=== PATIENT | male | born 1965 | race Caucasian/White ===

== ENCOUNTER 2021-05-04 13:35 | Emergency (ER) | payer OTHER ==
--- OUTSIDE RECORDS SUMMARY | 2021-05-04 13:38 | XMS REPORT | Continuity of Care Document ---
:1965 Author Organization [facility] Address [address] [place] [address] Care Team Providers Name Role Phone Tiburcio Attending Clinician Unavailable Ramiro Attending Clinician Unavailable [facility] Attending Clinician Unavailable Tiburcio Admitting Clinician Unavailable Ramiro Admitting Clinician Unavailable Payers Payer Name Policy Type Policy Number Effective Date Expiration Date S [facility] [id number] EMPLOYEE BENEFITS [facility] - DEPARTMENT [id number] [facility] [id number] EMPLOYEE BENEFITS PLAN Problems This patient has no known problems. Allergies, Adverse Reactions, Alerts This patient has no known allergies or adverse reactions. Medications This patient has no known medications. Procedures This patient has no known procedures. Encounters Start End Encounter Admission Attending Care Care Encounter Source Date/Time Date/Time Type Type Clinicians Facility Department ID 2020-04-07 2020-04-07 Outpatient [facility] [address] 04:29:00 04:29:00 [facility] [facility] Results Test Description Test Time Test Comments Results Result Comments Source [facility] 2017-11-19 11:11:00 Test Item Value Reference Range Interpretation Comme nts [facility] (test code = ACU) 109 mg/dL 70-110 N [id number] 04:52:00 Test Item Value Reference Range Interpretation Comments Chemistry (test 140 mmol/L 136-145 N code = NA-T) Chemistry (test 3.8 mmol/L 3.5-5.1 N code = K-T) Chemistry (test 106 mmol/L 98-107 N code = CL) Chemistry (test 29 mmol/L 22-29 N code = CO2) Chemistry (test 9 mmol/L 10-20 L code = ANGP) Chemistry (test 10 mg/dL 8.4-25.7 N code = BUN) Chemistry (test 0.73 mg/dL 0.6-1.3 N code = CREATT) Chemistry (test Greater than 90 Referenc e Range for code = EGFRMDRD) Estimated G FR: Gre ater than 90 mL/min/ 1.73 m2NOTE:The MDRD equation has no t been validated for use with theeld erly (over 70 years of age), women, patients with serious comorbi d condition or pe rsons with extremes o fbody size, muscle ma ss, or nutritional status. Chemistry (test 99 mg/dL 70-105 N code = GLU-T) Chemistry (test 9.2 mg/dL 7.8-10.44 N code = CA) [id number] 04:43:00 Test Item Value Reference Range Interpretation Comments Hematology (test code = WBCT) 9.5 thou/uL 4.8-10.8 N Hematology (test code = RBCT) 4.72 mill/uL 4.70-6.10 N Hematology (test code = HGBT) 14.3 g/dL 14.0-18.0 N Hematology (test code = HCTT) 42.5 % 42.0-52.0 N Hematology (test code = MCV) 90.1 fL 78.0-98.0 N Hematology (test code = MCH) 30.2 pg 27.0-31.0 N Hematology (test code = MCHC) 33.5 g/dL 32.0-36.0 N Hematology (test code = RDW) 11.4 % 11.5-14.5 L Hematology (test code = PLTT) 252 thou/uL 130-400 N Hematology (test code = MPV) 7.0 fL 7.4-10.4 L Hematology (test code = %NEUT) 41.6 % 42.0-75.0 L Hematology (test code = %LYMPH) 38.9 % 21.0-51.0 N Hematology (test code = %MONO) 6.1 % 0.0-10.0 N Hematology (test code = %EOS) 12.8 % 0.0-10.0 H Hematology (test code = %BASO) 0.7 % 0.0-1.0 N Hematology (test code = NEUT#) 3.9 thou/uL 1.40-6.50 N Hematology (test code = LYMPH#) 3.7 thou/uL 1.20-3.40 H Hematology (test code = MONO#) 0.6 thou/uL 0.11-0.59 H Hematology (test code = EOS#) 1.2 thou/uL 0.0-0.7 H Hematology (test code = BASO#) 0.1 thou/uL 0.0-0.2 N [id number] 20:31:00 Test Item Value Reference Range Interpretation Comments Accuchek (test code = ACU) 94 mg/dL 70-110 N [id number] 16:31:00 Test Item Value Reference Range Interpretation Comments Accuchek (test code = ACU) 86 mg/dL 70-110 N [id number] 15:48:00 Test Item Value Reference Range Interpretation Comments Toxicology (test Not Detected NotDetected code = CONNIE) Toxicology (test Not Detected NotDetected code = PCP) Toxicology (test Not Detected NotDetected code = COCN) Toxicology (test Not Detected NotDetected code = METHAMPU) Toxicology (test Not Detected NotDetected code = OPIA) Toxicology (test Not Detected NotDetected code = AMPHU) Toxicology (test Not Detected NotDetected code = VARGAS) Toxicology (test Not Detected NotDetected code = TRICY) Toxicology (test Not Detected NotDetected code = MTD) Toxicology (test Not Detected NotDetected code = SHIMON) Toxicology (test Not Detected NotDetected code = OXYCOD) Toxicology (test Not Detected NotDetected code = PPX) Toxicology (test The MedT ox Profile-V code = MTCUTOFF) Panel for Q ualitative Drugs ofAbuse a ssays are for presump tive screening testi ng only.The drug c lass and detection l imits are as follows: Drug Class Detection LimitAmphetamin e 500 ng/mL*Barbitura lamonte 200 ng/mLBenzodiaze pines 150 ng/mL*Cocaine 150 ng/mL*Methamphe tamine 500 ng/mL*Methadone 200 ng/mL*Opiates 100 ng/mL*Oxycodone 100 n g/mLPCP 25 ng/mLPropox yphene 30 0 ng/mLTricyclic Antidepressants 300 ng/mLCannabinoi ds (THC) 50 ng/mLTests whic h yield a presumptive p ositive result must bet ested using a more sp ecific alternate chemi sandra method inorder to obtain a confir med analytical resu lt. Additionalconfi rmation and identificat ion may be ordered on a routinebasis, i f desired. Presu mptive positive urines are held [facility]. Urine Source: Urine [id number] 15:38:00 Test Item Value Reference Range Interpretation Comments Urinalysis (test code = UACLR) YELLOW Yellow Urinalysis (test code = UACLY) CLEAR Clear Urinalysis (test code = SPGR) 1.053 1.002-1.036 H Urinalysis (test code = JENNIFER) 5.5 5.0-9.0 N Urinalysis (test code = UALEU) Negative Negative Urinalysis (test code = UANIT) Negative Negative Urinalysis (test code = Negative mg/dL Neg-Trace PROUADIP) Urinalysis (test code = GLUCU) Negative mg/dL Negative Urinalysis (test code = KETU) Negative mg/dL Negative Urinalysis (test code = 0.2 mg/dL 0.2-1.0 UAUROB) Urinalysis (test code = UABIL) Negative Negative Urinalysis (test code = UABLD) Negative Negative Urine Source: Urine [id number] 15:10:00 Test Item Value Reference Range Interpretation Comments Chemistry (test code = PROLAC) 4.06 ng/mL 3.46-19.40 N Chemistry - [id number] 15:04:00 Test Item Value Reference Range Interpretation Comments Chemistry - Specials (test code 1.1651 uIU/mL 0.35-4.94 N = TSH3) [id number] 14:51:00 Test Item Value Reference Range Interpretation Comments Chemistry (test Less than 10.0-30.0 L Therapeutic Range: 10.0 - code = ACET-T) 6.0 mcg/mL 30.0 ug/mLTox ic Range: Possible tox icity: 150 - 200 ug/mL Probable toxicity: Grea ter than 200 ug/mL*IMPORTANT TESTING INFORMATION* T he half-life of NAC is 2 meaghan rs. The total NAC clearanceis 5.6 hours for adults and 11 hours for Newborns. Test ing acetaminophen l evels prior to a reasonable timeframe for clearance c an cause falsely decreasedacetam inophen levels. Chemistry (test Less than Less than 10 The pharmaco logical response code = ETOH) 10 mg/dL to blood alcoho l levels mayvary from in dividual to individual. Negative: Less than 10 mg/dL Toxic: 50 - 10 0 mg/dL Depression o f FINISH MENDER: Greater than 100 mg/dL Fatalities reported: Greater than 400 mg/dL Chemistry (test Less than 15.0-30.0 L code = SALCY) 8.0 mg/dL [id number] 14:45:00 Test Item Value Reference Range Interpretation Comments Chemistry (test code = CK) 92 U/L 30-200 N Chemistry - [id number] 14:36:00 Test Item Value Reference Range Interpretation Comments Chemistry - Specials (test code = 36 umol/L 18-72 N AMM) [id number] 11:45:00 Test Item Value Reference Range Interpretation Comments Urinalysis (test code = UACLR) Yellow Yellow Urinalysis (test code = UACLY) Clear Clear Urinalysis (test code = SPGR) 1.025 1.005-1.030 N Urinalysis (test code = JENNIFER) 5.0 5.0-9.0 N Urinalysis (test code = UALEU) Negative Negative Urinalysis (test code = UANIT) Negative Negative Urinalysis (test code = Negative mg/dL Neg-Trace PROUADIP) Urinalysis (test code = GLUCU) Negative mg/dL Negative Urinalysis (test code = KETU) Negative mg/dL Negative Urinalysis (test code = 0.2 mg/dL 0.2-1.0 UAUROB) Urinalysis (test code = UABIL) Negative Negative Urinalysis (test code = UABLD) Negative Negative Urine Source: Urine [id number] 11:44:00 Test Item Value Reference Range Interpretation Comments Accuchek (test code = ACU) 114 mg/dL 70-110 H Chemistry - BNP, HgbA1c, [id number] 11:00:00 Test Item Value Reference Range Interpretation Comments Chemistry - BNP, HgbA1c, PTHi 19.0 pg/mL 0-100 N (test code = BNP) [id number] 10:54:00 Test Item Value Reference Range Interpretation Comments Chemistry (test 138 mmol/L 136-145 N code = NA-T) Chemistry (test 3.8 mmol/L 3.5-5.1 N code = K-T) Chemistry (test 106 mmol/L 98-107 N code = CL) Chemistry (test 22 mmol/L 22-29 N code = CO2) Chemistry (test 14 mmol/L 10-20 N code = ANGP) Chemistry (test 14 mg/dL 8.4-25.7 N code = BUN) Chemistry (test 0.72 mg/dL 0.7-1.3 N code = CREATT) Chemistry (test Greater than 90 Referenc e Range for code = EGFRMDRD) Estimated G FR: Gre ater than 90 mL/min/ 1.73 m2NOTE:The MDRD equation has no t been validated for use with theeld erly (over 70 years of age), women, patients with serious comorbi d condition or pe rsons with extremes o fbody size, muscle ma ss, or nutritional status. Chemistry (test 133 mg/dL 70-105 H code = GLU-T) Chemistry (test 8.8 mg/dL 7.8-10.44 N code = CA) Chemistry (test 0.5 mg/dL 0.2-1.2 N code = TBILI) Chemistry (test 6.7 g/dL 6.0-8.3 N code = TP) Chemistry (test 3.9 g/dL 3.5-5.0 N code = ALB) Chemistry (test 2.8 g/dL 2.4-3.5 N code = GLOB) Chemistry (test 1.4 g/dL 1.2-2.2 N code = AG) Chemistry (test 38 U/L 40-150 L code = ALP) Chemistry (test 16 U/L 5-34 N code = AST) Chemistry (test 23 U/L 8-55 N code = ALT) [id number] 10:54:00 Test Item Value Reference Range Interpretation Comments Chemistry (test 2.0 ng/mL 0-6.6 N code = CKMBM-T) Chemistry (test Less than < 0.028 code = TROPI-T) 0.010 ng/mL Reference Ra nge 0. 00 - 0.028 ng/mL Negative 0.029 - 0.29 n g/mL Indeterminate Greater or Equa l to 0.3 ng/mL St rongly suggests NE Chemistry - [id number] 10:53:00 Test Item Value Reference Range Interpretation Comments Chemistry - Lactate (test code = 2.6 mmol/L 0.5-2.2 H LACTSEP-T) [id number] 10:47:00 Test Item Value Reference Range Interpretation Comments Coagulation (test 0.58 *mcg/mL 0.27-0.43 H * Referenc e Range code = DDIMTT) Units: mcg/mL of fibri nogen equivalent units(FEU)Based upon a retrospective study of [facility] in September 2005, a result of"Less than 0. 44 mcg/mL FEU" is predictive of t he absence ofa DVT or PE. [id number] 10:33:00 Test Item Value Reference Range Interpretation Comments Hematology (test code = WBCT) 8.0 thou/uL 4.8-10.8 N Hematology (test code = RBCT) 4.54 mill/uL 4.70-6.10 L Hematology (test code = HGBT) 13.6 g/dL 14.0-18.0 L Hematology (test code = HCTT) 39.5 % 42.0-52.0 L Hematology (test code = MCV) 87.2 fL 78.0-98.0 N Hematology (test code = MCH) 30.1 pg 27.0-31.0 N Hematology (test code = MCHC) 34.5 g/dL 32.0-36.0 N Hematology (test code = RDW) 10.8 % 11.5-14.5 L Hematology (test code = PLTT) 245 thou/uL 130-400 N Hematology (test code = MPV) 7.4 fL 7.4-10.4 N Hematology (test code = %NEUT) 50.6 % 42.0-75.0 N Hematology (test code = %LYMPH) 30.6 % 21.0-51.0 N Hematology (test code = %MONO) 5.0 % 0.0-10.0 N Hematology (test code = %EOS) 12.5 % 0.0-10.0 H Hematology (test code = %BASO) 1.4 % 0.0-1.0 H Hematology (test code = NEUT#) 4.0 thou/uL 1.40-6.50 N Hematology (test code = LYMPH#) 2.4 thou/uL 1.20-3.40 N Hematology (test code = MONO#) 0.4 thou/uL 0.11-0.59 N Hematology (test code = EOS#) 1.0 thou/uL 0.0-0.7 H Hematology (test code = BASO#) 0.1 thou/uL 0.0-0.2 N
--- NOTE | 2021-05-04 14:48 | RAD REPORT ---
EXAM DESCRIPTION: RAD - Chest Single View - 05/04/2021 2:41 pm CLINICAL HISTORY: PAIN COMPARISON: No comparisons FINDINGS: Lines: None. Lungs: Mild opacities are present the left lung base. Pleural: No significant pleural effusions or pneumothorax. Cardiac: The heart size is within normal limits. Bones: No acute fractures. Other: IMPRESSION: Mild left basilar airspace disease could reflect atelectasis and/or pneumonia. The right lung is clear.
[2021-05-04] MEDS ORDERED: FENTANYL CITR 100 MCG/2 ML ONE (14:50)
[2021-05-04] MEDS ORDERED: ONDANSETRON 4 MG/2 ML VIAL ONE (14:50)
[2021-05-04 14:55] LABS: Absolute Lymphocytes (CBC) 2.9 K/uL (0.7-4.9); Basophils % 0.6 % (0-1.3); Lymphocytes % 32.1 % (15.3-44.8); MPV 8.2 fL (7.6-11.3); RBC Red Blood Cell Count 6.07 M/uL (4.33-5.43)
[2021-05-04 15:25] LABS: Albumin 3.7 g/dL (3.4-5.0); Bilirubin Direct 0.2 mg/dL (0-0.2); Bilirubin Total 0.7 mg/dL (0.2-1.0); Potassium 4.2 mmol/L (3.5-5.1); Protein, Total 8.5 g/dL (6.4-8.2)
--- NOTE | 2021-05-04 16:13 | RAD REPORT ---
EXAM DESCRIPTION: CTAbdomen Pelvis W Contrast - 05/04/2021 4:00 pm CLINICAL HISTORY: ABD PAIN COMPARISON: No comparisons TECHNIQUE: CT of the abdomen and pelvis was performed. All CT scans are performed using dose optimization technique as appropriate and may include automated exposure control or mA/KV adjustment according to patient size. FINDINGS: Lower chest: No acute abnormality. Liver: Hepatic steatosis. Biliary: No biliary ductal dilatation. Stomach: No significant focal abnormality. Duodenum: No significant focal abnormality. Pancreas: No significant abnormality. Spleen: No significant abnormality. Adrenal: No suspicious lesions. Kidney/ureter: No hydronephrosis. No renal calculi. Too small to characterize and/or benign appearing renal lesions are noted. Retroperitoneum: No retroperitoneal adenopathy. Vascular: No aneurysm. Bowel: Moderate formed stool in the colon. Normal appendix.. Peritoneum: No ascites or free air. Bladder: Grossly unremarkable. Reproductive: No adnexal masses. Bones: No acute fracture. Other: n/a IMPRESSION: No acute intra-abdominal or pelvic finding.
--- NOTE | 2021-05-04 16:20 | ER ---
Nurse's Notes [facility] Name: Luis Enrique Francois Age: 55 yrs Sex: Male : 1965 Arrival Date: 05/04/2021 Time: 13:42 Bed 11 Private MD: Diagnosis: Pneumonia, unspecified organism Presentation: 05/04 14:10 Chief complaint: Patient states: LUQ pain with a 'stabbing' sensation that began vg1 yesterday morning. Denies NVD, states last BM was 05/02/21. States with deep inhalation has the stabbing pain in LUQ and shortness of breath. Coronavirus screen: Vaccine status: Patient reports receiving the 2nd dose of the covid vaccine. Client denies travel out of the [place] in the last 14 days. Ebola Screen: Patient negative for fever greater than or equal to 101.5 degrees Fahrenheit, and additional compatible Ebola Virus Disease symptoms. Initial Sepsis Screen: Does the patient meet any 2 criteria? No. Patient's initial sepsis screen is negative. Does the patient have a suspected source of infection? No. Patient's initial sepsis screen is negative. Risk Assessment: Do you want to hurt yourself or someone else? Patient reports no desire to harm self or others. Onset of symptoms was May 03, 2021. 14:10 Method Of Arrival: Wheelchair vg1 14:10 Acuity: KEERTHI 3 vg1 Triage Assessment: 14:14 General: Appears in no apparent distress. uncomfortable, Behavior is calm, cooperative. vg1 Pain: Complains of pain in left upper quadrant Pain currently is 10 out of 10 on a pain scale. Quality of pain is described as sharp, stabbing, Pain began 1 day ago. GI: Abdomen is round non-distended, Last BM was May 02, 2021. Historical: - Allergies: 14:14 Dilaudid; vg1 - Home Meds: 14:14 Plavix Oral [Active]; Metformin Oral [Active]; vg1 - PMHx: 14:14 Hypertensive disorder; Hypercholesterolemia; Diabetes mellitus; vg1 - Immunization history:: Client reports receiving the 2nd dose of the Covid vaccine. - Social history:: Smoking status: Patient denies any tobacco usage or history of. Screenin:16 Abuse screen: Denies threats or abuse. Denies injuries from another. Nutritional ww screening: No deficits noted. Tuberculosis screening: No symptoms or risk factors identified. Fall Risk Ambulatory Aid- Crutches/Cane/Walker (15 pts). Assessment: 16:16 General: Appears in no apparent distress. well nourished, Behavior is calm, ww cooperative, appropriate for age. Pain: Complains of pain in left upper quadrant and left lower quadrant. Neuro: Level of Consciousness is awake, alert, Oriented to person, place, time, situation, Appropriate for age Moves all extremities. Speech is normal. Cardiovascular: No deficits noted. Capillary refill < 3 seconds. Respiratory: Airway is patent Respiratory effort is even, unlabored, Respiratory pattern is regular, symmetrical. GI: Abdomen is round Bowel sounds present X 4 quads. Abdomen is tender to palpation in left upper quadrant and left lower quadrant. : No signs and/or symptoms were reported regarding the genitourinary system. EENT: No signs and/or symptoms were reported regarding the EENT system. Derm: Skin is intact, Skin is pink, warm \T\ dry. Musculoskeletal: No deficits noted. No signs and/or symptoms reported regarding the musculoskeletal system. 17:31 Reassessment: Patient appears in no apparent distress at this time. Patient and/or ww family updated on plan of care and expected duration. Pain level reassessed. Vital Signs: 14:10 BP 109 / 98; Pulse 106; Resp 18; Temp 99.0(O); Pulse Ox 95% ; Weight 102.51 kg; Height vg1 5 ft. 11 in. (180.34 cm); Pain 10/10; 15:15 BP 106 / 78; Pulse 96; Resp 18; Pulse Ox 94% on R/A; ww 16:18 BP 105 / 77; Pulse 94; Resp 18; Pulse Ox 100% on R/A; ww 17:31 BP 108 / 71; Pulse 91; Resp 18; Pulse Ox 94% on R/A; ww 14:10 Body Mass Index 31.52 (102.51 kg, 180.34 cm) vg1 Sepideh Coma Score: 17:31 Eye Response: spontaneous(4). Verbal Response: oriented(5). Motor Response: obeys ww commands(6). Total: 15. ED Course: 13:42 Patient arrived in ED. am2 14:14 Triage completed. vg1 14:14 Arm band placed on. vg1 14:18 Vianey Bedoya FNP-C [facility]. kb 14:18 Alvarado Manzano MD is Attending Physician. kb 14:25 Little Mena, RN is Primary Nurse. ww 14:41 Chest Single View XRAY In Process Unspecified. EDMS 14:49 Inserted saline lock: 20 gauge in right forearm, using aseptic technique. mb7 15:59 CT Abd/Pelvis - IV Contrast Only In Process Unspecified. EDMS 16:16 Patient has correct armband on for positive identification. Fall risk band placed. Bed ww in low position. Call light in reach. Side rails up X2. 17:31 No provider procedures requiring assistance completed. intact, bleeding controlled, No ww redness/swelling at site. Pressure dressing applied. Administered Medications: 14:56 Drug: fentaNYL (PF) 50 mcg Route: IVP; Site: right forearm; iw 16:54 Follow up: Response: No adverse reaction; Marked relief of symptoms ww 14:56 Drug: Zofran (Ondansetron) 4 mg Route: IVP; Site: right forearm; iw 16:54 Follow up: Response: No adverse reaction; Marked relief of symptoms ww 16:30 Drug: Rocephin (cefTRIAXone) 1 grams Route: IV; Rate: calculated rate; Site: right ww forearm; 16:55 Follow up: Response: No adverse reaction; Marked relief of symptoms; IV Status: ww Completed infusion 16:35 Drug: Zithromax (azithromycin) 500 mg Route: PO; ww 16:55 Follow up: Response: No adverse reaction; Marked relief of symptoms ww Outcome: 16:19 Discharge ordered by . kb 17:31 Discharged to home ambulatory. ww 17:31 Condition: stable 17:31 Discharge instructions given to patient, Instructed on discharge instructions, follow up and referral plans. medication usage, safety practices, Demonstrated understanding of instructions, follow-up care, medications, Prescriptions given X 1. 17:32 Patient left the ED. ww Signatures: Dispatcher [employer] EDMS Vianey Bedoya FNP-C FNP-Caridad Verde, RN WILSON Radha Carrero Victoria RN RN 1 Mitzyviktor Patria mb7 Little Mena RN RN ww
--- NOTE | 2021-05-04 16:20 | EDPHYS ---
Physician Documentation [facility] Name: Luis Enrique Francois Age: 55 yrs Sex: Male : 1965 Arrival Date: 05/04/2021 Time: 13:42 Bed 11 Private MD: ED Physician Alvarado Manzano HPI: 05/04 16:17 This 55 yrs old Male presents to ER via Wheelchair with complaints of Abdominal Pain - kb stabbing like. 16:17 The patient presents with abdominal pain in the left upper quadrant. Onset: The kb symptoms/episode began/occurred yesterday. The symptoms do not radiate. Associated signs and symptoms: none. The symptoms are described as constant. Modifying factors: The symptoms are alleviated by nothing, the symptoms are aggravated by nothing. Severity of pain: At its worst the pain was moderate in the emergency department the pain is unchanged. The patient has not experienced similar symptoms in the past. The patient has not recently seen a physician. Pt reports LUQ pain that started yesterday while sleeping. States he has had a cough for 2 days as well. . Historical: - Allergies: 14:14 Dilaudid; vg1 - Home Meds: 14:14 Plavix Oral [Active]; Metformin Oral [Active]; vg1 - PMHx: 14:14 Hypertensive disorder; Hypercholesterolemia; Diabetes mellitus; vg1 - Immunization history:: Client reports receiving the 2nd dose of the Covid vaccine. - Social history:: Smoking status: Patient denies any tobacco usage or history of. ROS: 16:16 Constitutional: Negative for fever, chills, and weight loss. kb 16:16 Respiratory: Positive for cough, pleurisy, Negative for dyspnea on exertion, kb hemoptysis, orthopnea, shortness of breath, sputum production, wheezing. 16:16 Abdomen/GI: Positive for abdominal pain, Negative for nausea, vomiting, and diarrhea. 16:16 All other systems are negative. Exam: 16:16 Constitutional: This is a well developed, well nourished patient who is awake, alert, kb and in no acute distress. Head/Face: Normocephalic, atraumatic. ENT: Moist Mucous membranes Cardiovascular: Regular rate and rhythm with a normal S1 and S2. No gallops, murmurs, or rubs. No pulse deficits. Respiratory: Respirations even and unlabored. No increased work of breathing. Talking in full sentences Skin: Warm, dry with normal turgor. Normal color. MS/ Extremity: Pulses equal, no cyanosis. Neurovascular intact. Full, normal range of motion. Neuro: Awake and alert, GCS 15, oriented to person, place, time, and situation. Moves all extremities. Normal gait. Psych: Awake, alert, with orientation to person, place and time. Behavior, mood, and affect are within normal limits. 16:16 Chest/axilla: Palpation: tenderness, that is mild, of the left breast. 16:16 Respiratory: the patient does not display signs of respiratory distress, Respirations: normal, Breath sounds: are clear throughout. 16:16 Abdomen/GI: Inspection: abdomen appears normal, Bowel sounds: normal, in all quadrants, Palpation: soft, in all quadrants, moderate abdominal tenderness, in the left upper quadrant. Vital Signs: 14:10 BP 109 / 98; Pulse 106; Resp 18; Temp 99.0(O); Pulse Ox 95% ; Weight 102.51 kg; Height vg1 5 ft. 11 in. (180.34 cm); Pain 10/10; 15:15 BP 106 / 78; Pulse 96; Resp 18; Pulse Ox 94% on R/A; ww 16:18 BP 105 / 77; Pulse 94; Resp 18; Pulse Ox 100% on R/A; ww 17:31 BP 108 / 71; Pulse 91; Resp 18; Pulse Ox 94% on R/A; ww 14:10 Body Mass Index 31.52 (102.51 kg, 180.34 cm) vg1 Sepideh Coma Score: 17:31 Eye Response: spontaneous(4). Verbal Response: oriented(5). Motor Response: obeys ww commands(6). Total: 15. MDM: 14:19 Patient medically screened. kb 16:16 Data reviewed: vital signs, nurses notes. Data interpreted: Pulse oximetry: on room air kb is 95 %. Interpretation: normal. Counseling: I had a detailed discussion with the patient and/or guardian regarding: the historical points, exam findings, and any diagnostic results supporting the discharge/admit diagnosis, lab results, radiology results, the need for outpatient follow up, a family practitioner, to return to the emergency department if symptoms worsen or persist or if there are any questions or concerns that arise at home. 05/04 14:25 Order name: Basic Metabolic Panel; Complete Time: 15:25 EDMS 05/04 14:25 Order name: CBC with Automated Diff; Complete Time: 15:09 EDMS 05/04 14:24 Order name: CT Abd/Pelvis - IV Contrast Only; Complete Time: 16:14 kb 05/04 14:24 Order name: Chest Single View XRAY; Complete Time: 15:09 kb 05/04 14:25 Order name: Liver (Hepatic) Function; Complete Time: 15:25 EDMS 05/04 14:25 Order name: Lipase; Complete Time: 15:25 EDMS 05/04 14:24 Order name: IV Saline Lock; Complete Time: 14:49 kb 05/04 14:24 Order name: Labs collected and sent; Complete Time: 14:49 kb Administered Medications: 14:56 Drug: fentaNYL (PF) 50 mcg Route: IVP; Site: right forearm; iw 16:54 Follow up: Response: No adverse reaction; Marked relief of symptoms ww 14:56 Drug: Zofran (Ondansetron) 4 mg Route: IVP; Site: right forearm; iw 16:54 Follow up: Response: No adverse reaction; Marked relief of symptoms ww 16:30 Drug: Rocephin (cefTRIAXone) 1 grams Route: IV; Rate: calculated rate; Site: right ww forearm; 16:55 Follow up: Response: No adverse reaction; Marked relief of symptoms; IV Status: ww Completed infusion 16:35 Drug: Zithromax (azithromycin) 500 mg Route: PO; ww 16:55 Follow up: Response: No adverse reaction; Marked relief of symptoms ww Disposition: 19:52 Co-signature as Attending Physician, Alvarado Manzano MD I agree with the assessment and kdr plan of care. Disposition Summary: 05/04/21 16:19 Discharge Ordered Location: Home kb Condition: Stable kb Diagnosis - Pneumonia, unspecified organism kb Followup: kb - With: Emergency Department - When: As needed - Reason: Worsening of condition Followup: kb - With: Private Physician - When: 2 - 3 days - Reason: Recheck today's complaints, Continuance of care, Re-evaluation by your physician Discharge Instructions: - Discharge Summary Sheet kb - Community-Acquired Pneumonia, Adult, [id number] kb Forms: - Medication Reconciliation Form kb - Thank You Letter kb - Antibiotic Education kb - Prescription Opioid Use kb Prescriptions: - Zithromax 500 mg Oral Tablet - take 1 tablet by ORAL route once daily for 5 days; 5 tablet; Refills: 0, kb Product Selection Permitted Signatures: Dispatcher [employer] Vianey Moore, DIMITRIOSC EULALIA-Alvarado Nolasco MD MD kdr Williams, Irene, WILSON RN iw Mónica Muir RN RN vg1 Little Mena RN RN ww
[2021-05-04] MEDS ORDERED: AZITHROMYCIN 250 MG TAB ONE (16:25)
[2021-05-04] MEDS ORDERED: CEFTRIAXONE 1000 MG/VIAL ONE (16:25)
[2021-05-04 17:49] VITALS: BP 108/71; O2SAT 94
== END 2021-05-04 17:32 | disposition home or self-care (01) ==
LOC: ER 13:35
DX: J18.9 Pneumonia, unspecified organism (principal); I10 Essential (primary) hypertension; Z79.01 Long term (current) use of anticoagulants; Z88.5 Allergy status to narcotic agent
CPT/HCPCS: 96365; 85025; 80048; 36415; 80076; 83690; 74177; 71045; 96375; 99284; Q9967; J3010; J2405

== ENCOUNTER 2021-05-26 11:04 | Emergency (ER) | payer OTHER ==
--- OUTSIDE RECORDS SUMMARY | 2021-05-26 11:07 | XMS REPORT | Continuity of Care Document ---
:1965 [address] [facility] Address [address] [place] [address] Care Team Providers Name Role Phone Tiburcio Attending Clinician Unavailable Ramiro Attending Clinician Unavailable [facility] Attending Clinician Unavailable Tiburcio Admitting Clinician Unavailable Ramiro Admitting Clinician Unavailable Payers Payer Name Policy Type Policy Number Effective Date Expiration Date S [facility] [id number] EMPLOYEE BENEFITS PLAN [facility] - DEPARTMENT [id number] [facility] [id number] EM[employer]EE BENEFITS [employer]AN Problems This patient has no known problems. Allergies, Adverse Reactions, Alerts This patient has no known allergies or adverse reactions. Medications This patient has no known medications. Procedures This patient has no known procedures. Encounters Start End Encounter Admission Attending Care Care Encounter Source Date/Time Date/Time Type Type Clinicians Facility Department ID 2020-04-07 2020-04-07 Outpatient [facility] [address] 04:29:00 04:29:00 ergMD [address] [facility] Results Test Description Test Time Test Comments Results Result Comments Source [facility] 2017-11-19 11:11:00 Test Item Value Reference Range Interpretation Comme nts [facility] (test code = ACU) 109 mg/dL 70-110 N [id number] 04:52:00 Test Item Value Reference Range Interpretation [...] 9.2 mg/dL 7.8-10.44 N code = CA) [id number] 04:43:00 Test Item Value Reference Range Interpretation [...] code = BASO#) 0.1 thou/uL 0.0-0.2 N [id number] 20:31:00 Test Item Value Reference Range Interpretation Comments Accuchek (test code = ACU) 94 mg/dL 70-110 N [id number] 16:31:00 Test Item Value Reference Range Interpretation Comments Accuchek (test code = ACU) 86 mg/dL 70-110 N [id number] 15:48:00 Test Item Value Reference Range Interpretation [...] desired. Presu mptive positive urines are held [facility]. Urine Source: Urine [id number] 15:38:00 Test Item Value Reference Range Interpretation [...] = UABLD) Negative Negative Urine Source: Urine [id number] 15:10:00 Test Item Value Reference Range Interpretation Comments Chemistry (test code = PROLAC) 4.06 ng/mL 3.46-19.40 N Chemistry - [id number] 15:04:00 Test Item Value Reference Range Interpretation Comments Chemistry - Specials (test code 1.1651 uIU/mL 0.35-4.94 N = TSH3) [id number] 14:51:00 Test Item Value Reference Range Interpretation [...] - 10 0 mg/dL Depression o f [employer]CE: Greater than 100 mg/dL Fatalities reported: Greater than 400 mg/dL Chemistry (test Less than 15.0-30.0 L code = SALCY) 8.0 mg/dL [id number] 14:45:00 Test Item Value Reference Range Interpretation Comments Chemistry (test code = CK) 92 U/L 30-200 N Chemistry - [id number] 14:36:00 Test Item Value Reference Range Interpretation Comments Chemistry - Specials (test code = 36 umol/L 18-72 N AMM) [id number] 11:45:00 Test Item Value Reference Range Interpretation [...] = UABLD) Negative Negative Urine Source: Urine [id number] 11:44:00 Test Item Value Reference Range Interpretation Comments Accuchek (test code = ACU) 114 mg/dL 70-110 H Chemistry - BNP, HgbA1c, [id number] 11:00:00 Test Item Value Reference Range Interpretation Comments Chemistry - BNP, HgbA1c, PTHi 19.0 pg/mL 0-100 N (test code = BNP) [id number] 10:54:00 Test Item Value Reference Range Interpretation Comments Chemistry (test 2.0 ng/mL 0-6.6 N code = CKMBM-T) Chemistry (test Less than < 0.028 code = TROPI-T) 0.010 ng/mL Reference Ra nge 0. 00 - 0.028 ng/mL Negative 0.029 - 0.29 n g/mL Indeterminate Greater or Equa l to 0.3 ng/mL St [place] suggests [place] [id number] 10:54:00 Test Item Value Reference Range Interpretation [...] 23 U/L 8-55 N code = ALT) Chemistry - [id number] 10:53:00 Test Item Value Reference Range Interpretation Comments Chemistry - Lactate (test code = 2.6 mmol/L 0.5-2.2 H LACTSEP-T) [id number] 10:47:00 Test Item Value Reference Range Interpretation Comments Coagulation (test 0.58 *mcg/mL 0.27-0.43 H * Referenc e Range code = DDIMTT) Units: mcg/mL of fibri nogen equivalent units(FEU)Based upon a retrospective study of [facility] in September 2005, a result of"Less than 0. 44 mcg/mL FEU" is predictive of t he absence ofa DVT or PE. [id number] 10:33:00 Test Item Value Reference Range Interpretation [...]
[2021-05-26 12:05] LABS: Absolute Lymphocytes (CBC) 0.6 K/uL (0.7-4.9); Hematocrit 49.2 % (39.6-49.0); MPV 8.2 fL (7.6-11.3); RBC Red Blood Cell Count 5.66 M/uL (4.33-5.43)
[2021-05-26 12:10] LABS: Protime INR 1.03
--- NOTE | 2021-05-26 12:15 | RAD REPORT ---
EXAM DESCRIPTION: RAD - Chest Single View - 05/26/2021 12:00 pm CLINICAL HISTORY: CHEST PAIN COMPARISON: Portable 05/04/2021 TECHNIQUE: AP portable chest image was obtained 05/26/2021 12:00 pm . FINDINGS: Lung volumes are low but clear of peripheral mass or consolidation. Interstitial pattern a nd central vasculature match the prior study. Heart size is normal. No measurable pleural effusion an d no pneumothorax. No acute bony abnormality seen. No acute aortic findings suspected. IMPRESSION: No acute cardiopulmonary process. No significant change from comparison study.
[2021-05-26 12:24] LABS: ALT/SGPT 243 U/L (12-78); AST/SGOT 272 U/L (15-37); Albumin 3.3 g/dL (3.4-5.0); Alkaline Phosphatase 87 U/L (45-117); BUN Blood Urea Nitrogen 17 mg/dL (7-18); Bicarbonate 28 mmol/L (21-32); Bilirubin Direct 0.2 mg/dL (0-0.2); Bilirubin Total 0.8 mg/dL (0.2-1.0); Magnesium 1.8 mg/dL (1.8-2.4); NT PRO-BNP 13 pg/mL (<125); Potassium 4.2 mmol/L (3.5-5.1); Protein, Total 7.4 g/dL (6.4-8.2); Sodium Level 130 mmol/L (136-145); Troponin (Emerg Dept Use Only) < 0.02 ng/mL (0.0-0.045)
[2021-05-26 12:26] LABS: Glucose Level 496 mg/dL (74-106)
[2021-05-26 15:28] LABS: SARS-COV-2 RT PCR POSITIVE (NEGATIVE)
[2021-05-26] MEDS ORDERED: ACETAMINOPHEN 500 MG TAB ONE (16:03)
[2021-05-26] MEDS ORDERED: NA CHLORIDE 0.9% 1,000 ML ONE (16:04)
--- NOTE | 2021-05-26 17:24 | ER ---
Nurse's Notes [facility] Name: Luis Enrique Francois Age: 55 yrs Sex: Male : 1965 Arrival Date: 05/26/2021 Time: 11:06 Bed 17 Private MD: Diagnosis: SARS-associated coronavirus as the cause of diseases classified elsewhere Presentation: 05/26 11:29 Chief complaint: Patient states: about 2 weeks ago i started having chest pain. it has tw2 stayed the same. i was seen 2 weeks ago. they said i have pneumonia. i got 5 antibiotics and i took them. [facility] Coronavirus screen: congestion, cough unrelated to allergies, difficulty breathing, fatigue, fever, Client presents with at least one sign or symptom that may indicate coronavirus-19. Standard/surgical mask placed on the client. Provider contacted for isolation considerations. Ebola Screen: Patient denies travel to an Ebola-affected area in the 21 days before illness onset. Initial Sepsis Screen: Does the patient meet any 2 criteria? No. Patient's initial sepsis screen is negative. Does the patient have a suspected source of infection? No. Patient's initial sepsis screen is negative. Risk Assessment: Do you want to hurt yourself or someone else? Patient reports no desire to harm self or others. Onset of symptoms was May 26, 2021. 11:29 Method Of Arrival: Ambulatory tw2 11:29 Acuity: KEERTHI 3 tw2 Triage Assessment: 11:33 General: Appears in no apparent distress. uncomfortable, Behavior is calm, cooperative, tw2 appropriate for age. Pain: Complains of pain in chest. Respiratory: Reports shortness of breath at rest on exertion cough that is productive, green and clear Onset: The symptoms/episode began/occurred 2 weeks now, the patient has moderate shortness of breath. Historical: - Allergies: 11:32 Dilaudid; tw2 - Home Meds: 11:32 Metformin Oral [Active]; Plavix Oral [Active]; tw2 11:32 "whole list of them, but i dont have them with me" [Active]; tw2 - PMHx: 11:32 diabetes mellitus; Hypercholesterolemia; Hypertensive disorder; tw2 - Immunization history:: Client reports receiving the 2nd dose of the Covid vaccine, Flu vaccine is up to date. - Social history:: Smoking status: Patient denies any tobacco usage or history of. Screenin:45 Abuse screen: Denies threats or abuse. Denies injuries from another. Nutritional bp screening: No deficits noted. Tuberculosis screening: No symptoms or risk factors identified. Fall Risk None identified. Assessment: 11:45 General: SEE TRIAGE NOTE. bp 14:00 Reassessment: No changes from previously documented assessment. Patient and/or family bp updated on plan of care and expected duration. Pain level reassessed. 16:00 Reassessment: No changes from previously documented assessment. Patient and/or family bp updated on plan of care and expected duration. Pain level reassessed. PT COVID +. 17:48 Reassessment: PT D/C HOME AMBULATORY. DX WITH SARS-COVID. Cardiovascular: Rhythm is bp sinus rhythm. Respiratory: Airway is patent Respiratory effort is even, unlabored, Breath sounds are clear bilaterally. Vital Signs: 11:09 Pulse Ox 92% on R/A; tw2 11:31 BP 129 / 75; Pulse 107; Resp 20; Temp 98.7(TE); Pulse Ox 96% on R/A; Weight 104.33 kg tw2 (R); Height 5 ft. 11 in. (180.34 cm); 12:30 BP 118 / 77; Pulse 107; Resp 25; Pulse Ox 94% ; bp 13:30 BP 142 / 88; Pulse 110; Resp 23; Pulse Ox 94% ; bp 14:30 BP 136 / 71; Pulse 94; Resp 26; Pulse Ox 94% ; bp 15:30 BP 124 / 79; Pulse 109; Resp 23; Pulse Ox 93% ; bp 17:12 BP 141 / 88; Pulse 94; Resp 18; Pulse Ox 95% ; bp 11:31 Body Mass Index 32.08 (104.33 kg, 180.34 cm) tw2 ED Course: 11:06 Patient arrived in ED. am2 11:31 Triage completed. tw2 11:31 Arm band placed on. tw2 11:35 EKG completed in triage. Results shown to . tw2 11:36 Faraz Parrish, RN is Primary Nurse. bp 11:38 Raymon Garces MD is Attending Physician. sp3 11:45 Patient has correct armband on for positive identification. Bed in low position. Call bp light in reach. Side rails up X2. 11:55 Inserted saline lock: 20 gauge in left antecubital area, using aseptic technique. Blood tp1 collected. 12:00 XRAY Chest (1 view) In Process Unspecified. EDMS 17:48 No provider procedures requiring assistance completed. IV discontinued, intact, bp bleeding controlled, No redness/swelling at site. Pressure dressing applied. Administered Medications: 16:00 Drug: NS 0.9% 1000 ml Route: IV; Rate: 1 bolus; Site: right antecubital; bp 17:49 Follow up: IV Status: Completed infusion; IV Intake: 1000ml bp 16:00 Drug: Tylenol 1000 mg Route: PO; bp 17:49 Follow up: Response: No adverse reaction bp Intake: 17:49 IV: 1000ml; Total: 1000ml. bp Outcome: 17:24 Discharge ordered by MD. lynn 17:48 Discharged to home ambulatory, with family. bp 17:48 Condition: stable 17:48 Discharge instructions given to patient, Instructed on discharge instructions, follow up and referral plans. Demonstrated understanding of instructions, follow-up care. 17:49 Patient left the ED. bp Signatures: Dispatcher [employer] EDMS Nayla Conley, RN RN tw2 Radha Carrero Brian, RN RN bp Raymon Garces MD MD sp3 Carol Wheeler tp1
--- NOTE | 2021-05-26 17:24 | EDPHYS ---
Physician Documentation [facility] Name: Luis Enrique Francois Age: 55 yrs Sex: Male : 1965 Arrival Date: 05/26/2021 Time: 11:06 Bed 17 Private MD: ED Physician Raymon Garces HPI: 05/26 12:13 This 55 yrs old Male presents to ER via Ambulatory with complaints of Breathing sp3 Difficulty, Chest Pain. 12:13 55-year-old male with history of diabetes, hyperlipidemia, hypertension presents to the [facility] ED for recurrent and continued chest pain/pneumonia from his visit several weeks ago. Patient has not had a COVID-19 test ever in his life and subsequent to his last visit has developed worsening cough, chest pain, shortness of breath. Patient denies fever, headache, neck pain, back pain, abdominal pain, nausea, vomiting, diarrhea, rash, neuro symptoms, any other ROS at this time. Pain is described as constant and worse with cough. Pain is located anterior chest extending to the epigastric area.. Historical: - Allergies: 11:32 Dilaudid; tw2 - Home Meds: 11:32 Metformin Oral [Active]; Plavix Oral [Active]; tw2 11:32 "whole list of them, but i dont have them with me" [Active]; tw2 - PMHx: 11:32 diabetes mellitus; Hypercholesterolemia; Hypertensive disorder; tw2 - Immunization history:: Client reports receiving the 2nd dose of the Covid vaccine, Flu vaccine is up to date. - Social history:: Smoking status: Patient denies any tobacco usage or history of. ROS: 12:14 Eyes: Negative for injury, pain, redness, and discharge, ENT: Negative for injury, sp3 pain, and discharge, Neck: Negative for injury, pain, and swelling, Cardiovascular: Negative for chest pain, palpitations, and edema, Abdomen/GI: Negative for abdominal pain, nausea, vomiting, diarrhea, and constipation, Back: Negative for injury and pain, : Negative for injury, bleeding, discharge, and swelling, MS/Extremity: Negative for injury and deformity, Skin: Negative for injury, rash, and discoloration, Neuro: Negative for headache, weakness, numbness, tingling, and seizure. 12:14 Constitutional: Positive for Patient in no acute distress laying with mild shortness of breath.. Exam: 12:15 Constitutional: This is a well developed, well nourished patient who is awake, alert, sp3 and in no acute distress. Head/Face: Normocephalic, atraumatic. Eyes: Pupils equal round and reactive to light, extra-ocular motions intact. Lids and lashes normal. Conjunctiva and sclera are non-icteric and not injected. Cornea within normal limits. Periorbital areas with no swelling, redness, or edema. ENT: Nares patent. No nasal discharge, no septal abnormalities noted. External auditory canals are clear. Oropharynx with no redness, swelling, or masses, exudates, or evidence of obstruction, uvula midline. Mucous membranes moist. Neck: Trachea midline, no thyromegaly or masses palpated, and no cervical lymphadenopathy. Supple, full range of motion without nuchal rigidity, or vertebral point tenderness. No Meningismus. Chest/axilla: Normal chest wall appearance and motion. Nontender with no deformity. No lesions are appreciated. Abdomen/GI: Soft, non-tender, with normal bowel sounds. No distension or tympany. No guarding or rebound. No evidence of tenderness throughout. Back: No spinal tenderness. No costovertebral tenderness. Full range of motion. Skin: Warm, dry with normal turgor. Normal color with no rashes, no lesions, and no evidence of cellulitis. 12:15 Cardiovascular: Rate: Normal cardiac exam other than tachycardia.. 12:15 Respiratory: Coarse breath sounds bilaterally. Vital Signs: 11:09 Pulse Ox 92% on R/A; tw2 11:31 BP 129 / 75; Pulse 107; Resp 20; Temp 98.7(TE); Pulse Ox 96% on R/A; Weight 104.33 kg tw2 (R); Height 5 ft. 11 in. (180.34 cm); 12:30 BP 118 / 77; Pulse 107; Resp 25; Pulse Ox 94% ; bp 13:30 BP 142 / 88; Pulse 110; Resp 23; Pulse Ox 94% ; bp 14:30 BP 136 / 71; Pulse 94; Resp 26; Pulse Ox 94% ; bp 15:30 BP 124 / 79; Pulse 109; Resp 23; Pulse Ox 93% ; bp 17:12 BP 141 / 88; Pulse 94; Resp 18; Pulse Ox 95% ; bp 11:31 Body Mass Index 32.08 (104.33 kg, 180.34 cm) tw2 MDM: 12:10 Patient medically screened. sp3 12:23 Data reviewed: vital signs, nurses notes. ED course: 55-year-old male with chest pain, sp3 prior pneumonia, and worsening symptoms. Illness could be due to COVID-19 therefore we will check for that. Otherwise work-up pending and disposition to be determined based on data and patient course.. 17:23 ED course: Heart rate is down into the upper 80s low 90s after Tylenol and IV fluids. sp3 Clinically patient is stable with normal pulse oxygenation. Will discharge patient home with a breakthrough COVID-19 infection despite being vaccinated. No hospitalization criteria are met.. 05/26 11:40 Order name: Basic Metabolic Panel; Complete Time: 13:37 3 05/26 11:40 Order name: CBC with Diff; Complete Time: 13:37 3 05/26 11:40 Order name: LFT's; Complete Time: 13:37 05/26 11:40 Order name: Magnesium; Complete Time: 13:37 05/26 11:40 Order name: NT PRO-BNP; Complete Time: 13:37 3 05/26 11:40 Order name: PT-INR; Complete Time: 13:37 3 05/26 11:40 Order name: Troponin (emerg Dept Use Only); Complete Time: 13:37 3 05/26 11:40 Order name: XRAY Chest (1 view); Complete Time: 13:37 3 05/26 11:40 Order name: EKG; Complete Time: 11:41 05/26 11:40 Order name: Cardiac monitoring; Complete Time: 12:06 05/26 11:40 Order name: EKG - Nurse/Tech; Complete Time: 12:06 3 05/26 11:47 Order name: COVID-19/FLU A+B (Document "Date of Onset" if Symptomatic) eb 05/26 11:40 Order name: IV Saline Lock; Complete Time: 12:06 3 05/26 11:40 Order name: Labs collected and sent; Complete Time: 12:06 3 05/26 11:40 Order name: O2 Per Protocol; Complete Time: 12: 05/26 11:40 Order name: O2 Sat Monitoring; Complete Time: 12:07 sp3 Administered Medications: 16:00 Drug: NS 0.9% 1000 ml Route: IV; Rate: 1 bolus; Site: right antecubital; bp 17:49 Follow up: IV Status: Completed infusion; IV Intake: 1000ml bp 16:00 Drug: Tylenol 1000 mg Route: PO; bp 17:49 Follow up: Response: No adverse reaction bp Disposition Summary: 05/26/21 17:24 Discharge Ordered Location: Home sp3 Condition: Stable sp3 Diagnosis - SARS-associated coronavirus as the cause of diseases classified elsewhere sp3 Followup: sp3 - With: Private Physician - When: - Reason: Recheck today's complaints Discharge Instructions: - Discharge Summary Sheet sp3 - COVID-19 sp3 - 10 Things You Can Do to Manage Your COVID-19 Symptoms at Home - [facility] sp3 Forms: - Medication Reconciliation Form sp3 - Thank You Letter sp3 - Antibiotic Education sp3 - Prescription Opioid Use sp3 Signatures: Dispatcher [employer] EDNayla Mathis RN RN tw2 Faraz Parrish RN RN bp Raymon Garces MD MD sp3
[2021-05-26 18:11] VITALS: TEMP 98.7
[2021-05-26 18:21] VITALS: BP 141/88; O2SAT 95
--- NOTE | 2021-05-27 13:48 | EKG ---
Test Date: 2021-05-26 Test Time: 11:35:17 Claim Approver: IVAN MEASUREMENT RESULTS: Intervals: Rate: 107 ND: 132 QRSD: 86 QT: 344 QTc: 459 [place]: P: 66 ND: 132 QRS: -48 T: 37 INTERPRETIVE STATEMENTS: Sinus tachycardia Left anterior fascicular block Abnormal ECG No previous ECG available for comparison Electronically Signed On 05-27-21 13:47:37 GAS OPERATOR by Mark Crandall
== END 2021-05-26 17:49 | disposition home or self-care (01) ==
LOC: ER 11:04
DX: U07.1 COVID-19 (principal); E11.9 Type 2 diabetes mellitus without complications
CPT/HCPCS: 96361; 93005; 85025; 80048; 36415; 83735; 85610; 80076; 84484; 83880; 0240U; 71045; 96360; 99284; J7030

== ENCOUNTER 2021-09-06 11:31 | Emergency (ER) | payer BC, OTHER ==
--- OUTSIDE RECORDS SUMMARY | 2021-09-06 11:34 | XMS REPORT | Continuity of Care Document ---
:1965 Author Organization [facility] Address [address] [place] [address] Care Team Providers Name Role Phone Tiburcio Attending Clinician Unavailable Ramiro Attending Clinician Unavailable [facility] Attending Clinician Unavailable Tiburcio Admitting Clinician Unavailable Ramiro Admitting Clinician Unavailable Payers Payer Name Policy Type Policy Number Effective Date Expiration Date S [facility] [id number] [employer] [facility]PART[facility] [id number] [facility] [id number] EM[employer]EE BENEFITS [employer]AN Problems This patient has no known problems. Allergies, Adverse Reactions, Alerts This patient has no known allergies or adverse reactions. Medications This patient has no known medications. Procedures This patient has no known procedures. Encounters Start End Encounter Admission Attending Care Care Encounter Source Date/Time Date/Time Type Type Clinicians Facility Department ID 2020-04-07 2020-04-07 Outpatient James [facility] [address] 04:29:00 04:29:00 [facility] [address] [facility] Results Test Description Test Time Test Comments Results Result Comments Source [facility] 2017-11-19 11:11:00 Test Item Value Reference Range Interpretation Comme nts [facility] (test code = ACU) 109 mg/dL 70-110 N [id number] 04:52:00 Test Item Value Reference Range Interpretation [...] 9.2 mg/dL 7.8-10.44 N code = CA) [id number] 04:43:00 Test Item Value Reference Range Interpretation [...] code = BASO#) 0.1 thou/uL 0.0-0.2 N [id number] 20:31:00 Test Item Value Reference Range Interpretation Comments [facility] (test code = ACU) 94 mg/dL 70-110 N [id number] 16:31:00 Test Item Value Reference Range Interpretation Comments [place] (test code = ACU) 86 mg/dL 70-110 N [id number] 15:48:00 Test Item Value Reference Range Interpretation [...] desired. Presu mptive positive urines are held [facility]. Urine Source: Urine [id number] 15:38:00 Test Item Value Reference Range Interpretation [...] = UABLD) Negative Negative Urine Source: Urine [id number] 15:10:00 Test Item Value Reference Range Interpretation Comments Chemistry (test code = PROLAC) 4.06 ng/mL 3.46-19.40 N Chemistry - [id number] 15:04:00 Test Item Value Reference Range Interpretation Comments Chemistry - Specials (test code 1.1651 uIU/mL 0.35-4.94 N = TSH3) [id number] 14:51:00 Test Item Value Reference Range Interpretation [...] - 10 0 mg/dL Depression o f MEDICAL DEVICE ASSEMBLER: Greater than 100 mg/dL Fatalities reported: Greater than 400 mg/dL Chemistry (test Less than 15.0-30.0 L code = SALCY) 8.0 mg/dL [id number] 14:45:00 Test Item Value Reference Range Interpretation Comments Chemistry (test code = CK) 92 U/L 30-200 N Chemistry - [id number] 14:36:00 Test Item Value Reference Range Interpretation Comments Chemistry - Specials (test code = 36 umol/L 18-72 N AMM) [id number] 11:45:00 Test Item Value Reference Range Interpretation [...] = UABLD) Negative Negative Urine Source: Urine [id number] 11:44:00 Test Item Value Reference Range Interpretation Comments [place] (test code = ACU) 114 mg/dL 70-110 H Chemistry - BNP, HgbA1c, [id number] 11:00:00 Test Item Value Reference Range Interpretation Comments Chemistry - BNP, HgbA1c, PTHi 19.0 pg/mL 0-100 N (test code = BNP) [id number] 10:54:00 Test Item Value Reference Range Interpretation [...] 23 U/L 8-55 N code = ALT) [id number] 10:54:00 Test Item Value Reference Range Interpretation Comments Chemistry (test 2.0 ng/mL 0-6.6 N code = CKMBM-T) Chemistry (test Less than < 0.028 code = TROPI-T) 0.010 ng/mL Reference Ra nge 0. 00 - 0.028 ng/mL Negative 0.029 - 0.29 n g/mL Indeterminate Greater or Equa l to 0.3 ng/mL [facility] [place] suggests [place] Chemistry - [id number] 10:53:00 Test Item Value Reference Range Interpretation Comments Chemistry - Lactate (test code = 2.6 mmol/L 0.5-2.2 H LACTSEP-T) [id number] 10:47:00 Test Item Value Reference Range Interpretation Comments Coagulation (test 0.58 *mcg/mL 0.27-0.43 H * Referenc e Range code = DDIMTT) Units: mcg/mL of fibri nogen equivalent units(FEU)Based upon a retrospective study of [facility] in September 2005, a result of"Less than 0. 44 mcg/mL FEU" is predictive of t he absence ofa DVT or PE. [id number] 10:33:00 Test Item Value Reference Range Interpretation [...]
[2021-09-06 12:01] LABS: Absolute Lymphocytes (CBC) 1.9 K/uL (0.7-4.9); Hematocrit 47.6 % (39.6-49.0); Lymphocytes % 20.5 % (15.3-44.8); Protime INR 1.04; RBC Red Blood Cell Count 5.46 M/uL (4.33-5.43)
[2021-09-06] MEDS ORDERED: NA CHLORIDE 0.9% 1,000 ML ONE (12:13)
[2021-09-06] MEDS ORDERED: PANTOPRAZOLE 40 MG INJ ONE (12:13)
[2021-09-06 12:37] LABS: Albumin 3.5 g/dL (3.4-5.0); Bilirubin Direct 0.2 mg/dL (0-0.2); Bilirubin Total 0.6 mg/dL (0.2-1.0); Magnesium 1.8 mg/dL (1.8-2.4); Potassium 3.8 mmol/L (3.5-5.1); Protein, Total 7.5 g/dL (6.4-8.2); Troponin High Sensitivity 3.9 pg/mL (<58.9)
--- NOTE | 2021-09-06 13:13 | RAD REPORT ---
EXAM DESCRIPTION: CT - Abdomen Pelvis W Contrast - 09/06/2021 1:00 pm CLINICAL HISTORY: Abdominal pain COMPARISON: 2020 TECHNIQUE: Computed axial tomography of the abdomen pelvis was obtained. 100 cc Isovue-300 was admin istered intravenously. Oral contrast was not requested which limits evaluation of bowel. All CT scans are performed using dose optimization technique as appropriate and may include automated exposure control or mA/KV adjustment according to patient size. FINDINGS: Fatty liver. Mild hepatomegaly. Spleen, pancreas and adrenals unremarkable Small renal cysts. There is no evidence of diverticulitis. Normal appendix. Small periumbilical hernia. Small ventral hernia. Small left inguinal hernia Mild amount stool within the colon IMPRESSION: Mild hepatomegaly with fatty infiltration
--- NOTE | 2021-09-06 14:08 | RAD REPORT ---
EXAM DESCRIPTION: Vivienne Single View09/06/2021 1:54 pm CLINICAL HISTORY: cough COMPARISON: May 2021 FINDINGS: The lungs appear clear of acute infiltrate. The heart is normal size IMPRESSION: No acute abnormalities displayed
--- NOTE | 2021-09-06 14:18 | ER ---
Nurse's Notes [facility] Name: Luis Enrique Francois Age: 55 yrs Sex: Male : 1965 Arrival Date: 09/06/2021 Time: 11:33 Bed 23 Private MD: Diagnosis: Abdominal tenderness;Epigastric abdominal tenderness;Vomiting;Abnormal serum enzyme level, unspecified-[id number];Obesity, unspecified Presentation: 09/06 11:38 Chief complaint: EMS states: pt c/o mid abd pain started yesterday with n/v, abd tender iw to palpation. Coronavirus screen: At this time, the client does not indicate any symptoms associated with coronavirus-19. Ebola Screen: Patient negative for fever greater than or equal to 101.5 degrees Fahrenheit, and additional compatible Ebola Virus Disease symptoms Patient denies exposure to infectious person. Patient denies travel to an Ebola-affected area in the 21 days before illness onset. No symptoms or risks identified at this time. Initial Sepsis Screen: Does the patient meet any 2 criteria? No. Patient's initial sepsis screen is negative. Does the patient have a suspected source of infection? No. Patient's initial sepsis screen is negative. Risk Assessment: Do you want to hurt yourself or someone else? Patient reports no desire to harm self or others. Onset of symptoms was September 05, 2021. 11:38 Method Of Arrival: EMS: [facility] iw 11:38 Acuity: KEERTHI 3 iw 11:40 Care prior to arrival: Medication(s) given: Phenergan, 25 mg, IV initiated. 18 GA, in iw the right antecubital area. Historical: - Allergies: 11:40 Dilaudid; iw - Home Meds: 15:50 Metformin Oral [Active]; Plavix Oral [Active]; iw - PMHx: 11:40 diabetes mellitus; Hypercholesterolemia; Hypertensive disorder; iw Screenin:56 Abuse screen: Denies threats or abuse. Denies injuries from another. Nutritional iw screening: No deficits noted. Tuberculosis screening: No symptoms or risk factors identified. Fall Risk IV access (20 points). Assessment: 11:55 General: Appears in no apparent distress. Behavior is calm, cooperative. Pain: iw Complains of pain in epigastric area, right upper quadrant and left upper quadrant. Neuro: Level of Consciousness is awake, alert, obeys commands. Respiratory: Respiratory effort is even, unlabored, Respiratory pattern is regular, symmetrical. GI: Abdomen is round Reports upper abdominal pain, nausea, vomiting. Derm: Musculoskeletal: Range of motion: intact in all extremities. 12:51 Reassessment: Patient appears in no apparent distress at this time. Patient and/or iw family updated on plan of care and expected duration. Pain level reassessed. Patient states feeling better. Patient states symptoms have improved. 16:20 Reassessment: report given to WILSON Salter. iw Vital Signs: 12:13 BP 105 / 67; Pulse 87; Resp 16 S; Temp 98.0; Pulse Ox 94% on R/A; iw 14:50 BP 97 / 68; Pulse 75; Resp 16; Pulse Ox 96% on 3 lpm NC; iw 15:51 BP 107 / 68; Pulse 74; Resp 16; Pulse Ox 95% on 3 lpm NC; iw ED Course: 11:33 Patient arrived in ED. iw 11:37 Caridad Cool RN is Primary Nurse. iw 11:40 Triage completed. iw 11:40 Arm band placed on. iw 11:41 Walt Mitchell MD is Attending Physician. jorge 11:56 Maintain EMS IV. Dressing intact. Good blood return noted. Site clean \T\ dry. Gauge \T\ iw site: 18 RAC. 12:28 EKG done, by ED staff, reviewed by Walt Mitchell MD. em1 12:51 Patient has correct armband on for positive identification. Bed in low position. Side iw rails up X2. Pulse ox on. NIBP on. 13:02 CT Abd/Pelvis - IV Contrast Only In Process Unspecified. EDMS 13:55 XRAY Chest (1 view) In Process Unspecified. EDMS 17:00 US Abdomen Limited In Process Unspecified. EDMS Administered Medications: 12:12 Drug: ProTONIX (pantoprazole) 80 mg Route: IVP; Site: right antecubital; iw 12:12 Drug: NS 0.9% 500 ml Route: IV; Rate: bolus; Site: right antecubital; iw 13:00 Follow up: IV Status: Completed infusion iw 14:10 Drug: NS 0.9% 1000 ml Route: IV; Rate: 1 bolus; Site: right antecubital; iw 15:10 Follow up: IV Status: Completed infusion iw 14:45 Drug: Zofran (Ondansetron) 4 mg Route: IVP; Site: right antecubital; iw 14:49 Drug: morphine 4 mg Route: IVP; Site: right antecubital; iw 15:23 Drug: ProTONIX (pantoprazole) 8 mg/hr Route: IV; Rate: 25 ml/hr; Site: right iw antecubital; 16:30 Follow up: IV Status: Infusion continued upon transfer; Order to discontinue infusion iw 16:41 Not Given (Patient Refused): Zofran (Ondansetron) 4 mg IVP once; over 2 minutes jb4 Outcome: 14:17 ER care complete, transfer ordered by MD. patel 17:03 Patient left the ED. iw Signatures: Dispatcher [employer] EDWalt Finley MD MD cha Williams, Irene, RN RN Maury Son James RN jb4
--- NOTE | 2021-09-06 14:18 | EDPHYS ---
Physician Documentation [facility] Name: Luis Enrique Francois Age: 55 yrs Sex: Male : 1965 Arrival Date: 09/06/2021 Time: 11:33 Bed 23 Private MD: DARCY Physician Walt Mitchell HPI: 09/06 14:11 This 55 yrs old Male presents to ER via EMS with complaints of Abdominal jorge Pain, Nausea/Vomiting. 14:11 The patient presents to the emergency department with nausea, vomiting, that is jorge continuous. Onset: The symptoms/episode began/occurred this morning, today. Possible causes: unknown. The symptoms are aggravated by nothing. The symptoms are alleviated by nothing. Severity of symptoms: At their worst the symptoms were mild just prior to arrival, moderate just prior to arrival. The patient has experienced similar episodes in the past, a few times. Historical: - Allergies: 11:40 Dilaudid; iw - Home Meds: 15:50 Metformin Oral [Active]; Plavix Oral [Active]; iw - PMHx: 11:40 diabetes mellitus; Hypercholesterolemia; Hypertensive disorder; iw ROS: 14:13 Constitutional: Negative for fever, chills, and weight loss, Eyes: Negative for injury, jorge pain, redness, and discharge, ENT: Negative for injury, pain, and discharge, Neck: Negative for injury, pain, and swelling, Cardiovascular: Negative for chest pain, palpitations, and edema, Respiratory: Negative for shortness of breath, cough, wheezing, and pleuritic chest pain, Back: Negative for injury and pain, : Negative for injury, bleeding, discharge, and swelling, MS/Extremity: Negative for injury and deformity, Skin: Negative for injury, rash, and discoloration, Neuro: Negative for headache, weakness, numbness, tingling, and seizure, Psych: Negative for depression, anxiety, suicide ideation, homicidal ideation, and hallucinations, Allergy/Immunology: Negative for hives, rash, and allergies, Endocrine: Negative for neck swelling, polydipsia, polyuria, polyphagia, and marked weight changes, Hematologic/Lymphatic: Negative for swollen nodes, abnormal bleeding, and unusual bruising. 14:13 Abdomen/GI: Positive for abdominal pain, nausea and vomiting. Exam: 14:13 Constitutional: This is a well developed, well nourished patient who is awake, alert, jorge and in no acute distress. Head/Face: Normocephalic, atraumatic. Eyes: Pupils equal round and reactive to light, extra-ocular motions intact. Lids and lashes normal. Conjunctiva and sclera are non-icteric and not injected. Cornea within normal limits. Periorbital areas with no swelling, redness, or edema. ENT: Nares patent. No nasal discharge, no septal abnormalities noted. Tympanic membranes are normal and external auditory canals are clear. Oropharynx with no redness, swelling, or masses, exudates, or evidence of obstruction, uvula midline. Mucous membranes moist. Neck: Trachea midline, no thyromegaly or masses palpated, and no cervical lymphadenopathy. Supple, full range of motion without nuchal rigidity, or vertebral point tenderness. No Meningismus. Chest/axilla: Normal chest wall appearance and motion. Nontender with no deformity. No lesions are appreciated. Cardiovascular: Regular rate and rhythm with a normal S1 and S2. No gallops, murmurs, or rubs. Normal PMI, no JVD. No pulse deficits. Respiratory: Lungs have equal breath sounds bilaterally, clear to auscultation and percussion. No rales, rhonchi or wheezes noted. No increased work of breathing, no retractions or nasal flaring. Back: No spinal tenderness. No costovertebral tenderness. Full range of motion. Male : Normal genitalia with no discharge or lesions. Skin: Warm, dry with normal turgor. Normal color with no rashes, no lesions, and no evidence of cellulitis. MS/ Extremity: Pulses equal, no cyanosis. Neurovascular intact. Full, normal range of motion. Neuro: Awake and alert, GCS 15, oriented to person, place, time, and situation. Cranial nerves II-XII grossly intact. Motor strength 5/5 in all extremities. Sensory grossly intact. Cerebellar exam normal. Normal gait. Psych: Awake, alert, with orientation to person, place and time. Behavior, mood, and affect are within normal limits. 14:13 ECG was reviewed by the Attending Physician. 14:13 Abdomen/GI: Inspection: distension, Bowel sounds: normal, Palpation: mild abdominal tenderness, moderate abdominal tenderness, in the epigastric area, right upper quadrant and left upper quadrant, Liver: no appreciated palpable abnormalities, Hernia: not appreciated. Vital Signs: 12:13 BP 105 / 67; Pulse 87; Resp 16 S; Temp 98.0; Pulse Ox 94% on R/A; iw 14:50 BP 97 / 68; Pulse 75; Resp 16; Pulse Ox 96% on 3 lpm NC; iw 15:51 BP 107 / 68; Pulse 74; Resp 16; Pulse Ox 95% on 3 lpm NC; iw MDM: 11:41 Patient medically screened. jorge 14:15 Differential diagnosis: Nonspecific abd pain, gastritis, cholecystitis, pancreatitis, jorge viral gastroenteritis, gastroenteritis. Data reviewed: vital signs, nurses notes, lab test result(s), EKG, radiologic studies, CT scan, plain films. Data interpreted: coremaker floor: rate is 87 beats/min, rhythm is regular, Pulse oximetry: on room air is 94 %. Test interpretation: by ED physician or midlevel provider: ECG, plain radiologic studies. Counseling: I had a detailed discussion with the patient and/or guardian regarding: the historical points, exam findings, and any diagnostic results supporting the discharge/admit diagnosis, lab results, radiology results, the need to transfer to another facility, for higher level of care, [facility] does not immediately have the required specialist. 09/06 11:43 Order name: Basic Metabolic Panel; Complete Time: 13:59 [facility] 09/06 11:43 Order name: CBC with Diff; Complete Time: 13:59 09/06 11:43 Order name: LFT's; Complete Time: 13:59 09/06 11:43 Order name: Magnesium; Complete Time: 13:59 09/06 11:43 Order name: NT PRO-BNP; Complete Time: 13:59 09/06 11:43 Order name: PT-INR; Complete Time: 13:59 09/06 11:43 Order name: Troponin HS; Complete Time: 13:59 09/06 11:43 Order name: XRAY Chest (1 view); Complete Time: 14:10 [facility] 09/06 11:43 Order name: Lipase; Complete Time: 13:59 [facility] 09/06 11:43 Order name: CT Abd/Pelvis - IV Contrast Only; Complete Time: 13:59 09/06 11:44 Order name: SARS-COV-2 RT PCR (Document "Date of Onset" if Symptomatic); Complete Time: [facility] 13:09/06 15:35 Order name: Lipid Profile [facility] 09/06 15:36 Order name: US Abdomen Limited 09/06 11:43 Order name: EKG; Complete Time: 11:44 [facility] 09/06 11:43 Order name: Cardiac monitoring; Complete Time: 13:07 [facility] 09/06 11:43 Order name: EKG - Nurse/Tech; Complete Time: 12:28 [facility] 09/06 11:43 Order name: IV Saline Lock; Complete Time: 57 [facility] 09/06 11:43 Order name: Labs collected and sent; Complete Time: :57 [facility] 09/06 11:43 Order name: O2 Per Protocol; Complete Time: [facility] 09/06 11:43 Order name: O2 Sat Monitoring; Complete Time: [facility] EC:13 Rate is 89 beats/min. Rhythm is regular. QRS [place] is Normal. [place] interval is normal. QRS jorge interval is normal. QT interval is normal. No Q waves. T waves are Normal. No ST changes noted. Clinical impression: NSR w/ Non-specific ST/T Changes and No evidence of ischemia. Reviewed by me. Administered Medications: 12:12 Drug: ProTONIX (pantoprazole) 80 mg Route: IVP; Site: right antecubital; iw 12:12 Drug: NS 0.9% 500 ml Route: IV; Rate: bolus; Site: right antecubital; iw 13:00 Follow up: IV Status: Completed infusion iw 14:10 Drug: NS 0.9% 1000 ml Route: IV; Rate: 1 bolus; Site: right antecubital; iw 15:10 Follow up: IV Status: Completed infusion iw 14:45 Drug: Zofran (Ondansetron) 4 mg Route: IVP; Site: right antecubital; iw 14:49 Drug: morphine 4 mg Route: IVP; Site: right antecubital; iw 15:23 Drug: ProTONIX (pantoprazole) 8 mg/hr Route: IV; Rate: 25 ml/hr; Site: right iw antecubital; 16:30 Follow up: IV Status: Infusion continued upon transfer; Order to discontinue infusion iw 16:41 Not Given (Patient Refused): Zofran (Ondansetron) 4 mg IVP once; over 2 minutes jb4 Disposition Summary: 09/06/21 14:17 Transfer Ordered Transfer Location: [facility] jorge Reason: Higher level of care jorge Condition: Fair jorge Problem: new jorge Symptoms: have improved jorge Accepting Physician: to the ar(09/06/21 17:03) iw Diagnosis - Abdominal tenderness jorge - Epigastric abdominal tenderness jorge - Vomiting jorge - Abnormal serum enzyme level, unspecified - [id number] jorge - Obesity, unspecified jorge Forms: - Medication Reconciliation Form jorge - SBAR form jorge Signatures: Dispatcher [employer] EDWalt Finley MD MD cha Williams, Irene, RN RN Jarett Dos Santos RN jb4 Corrections: (The following items were deleted from the chart) 15:19 14:17 to the ar jorge jorge 17:03 15:19 to the ar jorge iw
[2021-09-06] MEDS ORDERED: MORPHINE 4 MG/ML SYR ONE (14:46)
[2021-09-06] MEDS ORDERED: ONDANSETRON 4 MG/2 ML VIAL ONE (14:46)
[2021-09-06] MEDS ORDERED: PANTOPRAZOLE INJ 80 MG in NA CHLORIDE 0.9% 250 ML IV SCH (15:00)
[2021-09-06 16:51] LABS: HDL Cholesterol 22 mg/dL (40-60)
--- NOTE | 2021-09-06 17:18 | RAD REPORT ---
EXAM DESCRIPTION: US - Abdomen Exam Limited - 09/06/2021 4:59 pm CLINICAL HISTORY: Abdominal pain. COMPARISON: September 06, 2021 cat scan FINDINGS: Mild gallbladder distention The gallbladder wall is not thickened. A gallstone is not seen. The biliary tree is normal caliber. IMPRESSION: Mild gallbladder distention
[2021-09-06 17:24] LABS: LDL, Direct 96 mg/dL (100-129)
[2021-09-07 00:36] VITALS: TEMP 98
[2021-09-07 00:39] VITALS: BP 107/68; O2SAT 95
--- NOTE | 2021-09-07 07:56 | EKG ---
Test Date: 2021-09-06 Test Time: 12:27:12 Relay Dispatcher: SAMEER MEASUREMENT RESULTS: Intervals: Rate: 89 WA: 142 QRSD: 88 QT: 372 QTc: 452 [place]: P: 51 WA: 142 QRS: -42 T: 9 INTERPRETIVE STATEMENTS: Normal sinus rhythm Left axis deviation Possible Anterolateral infarct, age undetermined Abnormal ECG Compared to ECG 05/26/2021 11:35:17 Left-axis deviation now present Myocardial infarct finding now present Sinus tachycardia no longer present Left anterior fascicular block no longer present Electronically Signed On 09-07-21 07:55:29 CDT by Mark Crandall
== END 2021-09-06 17:03 ==
LOC: ER 11:31
DX: R10.816 Epigastric abdominal tenderness (principal); E66.9 Obesity, unspecified; R74.8 Abnormal levels of other serum enzymes; E11.9 Type 2 diabetes mellitus without complications; E78.00 Pure hypercholesterolemia, unspecified; I10 Essential (primary) hypertension; Z20.822 Contact with and (suspected) exposure to COVID-19
CPT/HCPCS: 96365; 96361; 93005; 85025; 80048; 36415; 83721; 83735; 85610; 80061; 80076; 84484; 83690; 83880; 74177; 71045; 76705; 96375; 99284; U0003; Q9967; C9113 ×2; J7050; J7030; J2405

== ENCOUNTER 2021-10-09 09:59 | Emergency (ER) | payer BC, OTHER ==
--- OUTSIDE RECORDS SUMMARY | 2021-10-09 10:02 | XMS REPORT | Continuity of Care Document ---
:1965 Author Organization [facility] Address [address] [place] [address] Care Team Providers Name Role Phone Tiburcio Attending Clinician Unavailable Ramiro Attending Clinician Unavailable [facility] Attending Clinician Unavailable Tiburcio Admitting Clinician Unavailable Ramiro Admitting Clinician Unavailable Payers Payer Name Policy Type Policy Number Effective Date Expiration Date S [facility] [id number] EMPLOYEE BENEFITS PLAN [facility] DEPARTMENT [id number] [facility] [id number] EMPLOYEE BENEFITS PLAN Problems This patient has no known problems. Allergies, Adverse Reactions, Alerts This patient has no known allergies or adverse reactions. Medications This patient has no known medications. Procedures This patient has no known procedures. Encounters Start End Encounter Admission Attending Care Care Encounter Source Date/Time Date/Time Type Type Clinicians Facility Department ID 2020-04-07 2020-04-07 Outpatient [facility] [address] 04:29:00 04:29:00 [facility] [address] [facility] Results Test Description Test Time Test Comments Results Result Comments Source [facility] 2017-11-19 11:11:00 Test Item Value Reference Range Interpretation Comme nts [place] (test code = ACU) 109 mg/dL 70-110 N [id number] 04:52:00 Test Item Value Reference Range Interpretation [...] 9.2 mg/dL 7.8-10.44 N code = CA) [id number] 04:43:00 Test Item Value Reference Range Interpretation [...] code = BASO#) 0.1 thou/uL 0.0-0.2 N [id number] 20:31:00 Test Item Value Reference Range Interpretation Comments [facility] (test code = ACU) 94 mg/dL 70-110 N [id number] 16:31:00 Test Item Value Reference Range Interpretation Comments [place] (test code = ACU) 86 mg/dL 70-110 N [id number] 15:48:00 Test Item Value Reference Range Interpretation [...] desired. Presu mptive positive urines are held [facility]. Urine Source: Urine [id number] 15:38:00 Test Item Value Reference Range Interpretation [...] = UABLD) Negative Negative Urine Source: Urine [id number] 15:10:00 Test Item Value Reference Range Interpretation Comments Chemistry (test code = PROLAC) 4.06 ng/mL 3.46-19.40 N Chemistry - [id number] 15:04:00 Test Item Value Reference Range Interpretation Comments Chemistry - Specials (test code 1.1651 uIU/mL 0.35-4.94 N = TSH3) [id number] 14:51:00 Test Item Value Reference Range Interpretation [...] - 10 0 mg/dL Depression o f CLINICAL MEDICAL TRANSCRIPTIONIST: Greater than 100 mg/dL Fatalities reported: Greater than 400 mg/dL Chemistry (test Less than 15.0-30.0 L code = SALCY) 8.0 mg/dL [id number] 14:45:00 Test Item Value Reference Range Interpretation Comments Chemistry (test code = CK) 92 U/L 30-200 N Chemistry - [id number] 14:36:00 Test Item Value Reference Range Interpretation Comments Chemistry - Specials (test code = 36 umol/L 18-72 N AMM) [id number] 11:45:00 Test Item Value Reference Range Interpretation [...] = UABLD) Negative Negative Urine Source: Urine [id number] 11:44:00 Test Item Value Reference Range Interpretation Comments [place] (test code = ACU) 114 mg/dL 70-110 H Chemistry - BNP, HgbA1c, [id number] 11:00:00 Test Item Value Reference Range Interpretation Comments Chemistry - BNP, HgbA1c, PTHi 19.0 pg/mL 0-100 N (test code = BNP) [id number] 10:54:00 Test Item Value Reference Range Interpretation [...] 23 U/L 8-55 N code = ALT) [id number] 10:54:00 Test Item Value Reference Range Interpretation Comments Chemistry (test 2.0 ng/mL 0-6.6 N code = CKMBM-T) Chemistry (test Less than < 0.028 code = TROPI-T) 0.010 ng/mL Reference Ra nge 0. 00 - 0.028 ng/mL Negative 0.029 - 0.29 n g/mL Indeterminate Greater or Equa l to 0.3 ng/mL [facility] [place] suggests [place] Chemistry - [id number] 10:53:00 Test Item Value Reference Range Interpretation Comments Chemistry - Lactate (test code = 2.6 mmol/L 0.5-2.2 H LACTSEP-T) [id number] 10:47:00 Test Item Value Reference Range Interpretation Comments Coagulation (test 0.58 *mcg/mL 0.27-0.43 H * Referenc e Range code = DDIMTT) Units: mcg/mL of fibri nogen equivalent units(FEU)Based upon a retrospective study of [facility] in September 2005, a result of"Less than 0. 44 mcg/mL FEU" is predictive of t he absence ofa DVT or PE. [id number] 10:33:00 Test Item Value Reference Range Interpretation [...]
[2021-10-09 10:32] LABS: Absolute Lymphocytes (CBC) 1.9 K/uL (0.7-4.9); Hematocrit 47.3 % (39.6-49.0); Lymphocytes % 25.4 % (15.3-44.8); MPV 7.6 fL (7.6-11.3); Protime INR 1.01
--- NOTE | 2021-10-09 10:46 | RAD REPORT ---
EXAM DESCRIPTION: CT - Ct Stroke Brain Wo Cont - 10/09/2021 10:18 am CLINICAL HISTORY: Double vision CVA, headache COMPARISON: No comparisons TECHNIQUE: All CT scans are performed using dose optimization technique as appropriate and may inclu de automated exposure control or mA/KV adjustment according to patient size. FINDINGS: No intracranial hemorrhage, hydrocephalus or extra-axial fluid collection.Mild brain atrop hy.No areas of brain edema or evidence of midline shift. The paranasal sinuses and mastoids are clear. The calvarium is intact. IMPRESSION: No acute intracranial abnormality. The findings were discussed with Marc Torre in the ER on 10/09/2021 at 10:40 a.m. by telephone.
--- NOTE | 2021-10-09 10:59 | RAD REPORT ---
EXAM DESCRIPTION: RAD - Chest Single View - 10/09/2021 10:48 am CLINICAL HISTORY: double vision Chest pain. COMPARISON: Chest Single View dated 09/06/2021; Chest Single View dated 05/26/2021; Chest Single View d ated 05/04/2021 FINDINGS: Portable technique limits examination quality. Mild interstitial pulmonary edema seen. The heart is mildly enlarged in size with sternotomy wires pr esent. Dual lead pacer/defibrillator device is in place. IMPRESSION: Mild CHF.
[2021-10-09] MEDS ORDERED: MECLIZINE HCL 12.5 MG TAB ONE (11:45)
--- NOTE | 2021-10-09 12:17 | RAD REPORT ---
EXAM DESCRIPTION: RAD - Chest Single View - 10/09/2021 12:11 pm CLINICAL HISTORY: DOUBLE VISION Chest pain. COMPARISON: Chest Single View dated 09/06/2021; Chest Single View dated 05/26/2021; Chest Single View d ated 05/04/2021 FINDINGS: Portable technique limits examination quality. The lungs are grossly clear. The heart is normal in size. No displaced fractures. IMPRESSION: No acute intrathoracic process suspected.
--- NOTE | 2021-10-09 13:48 | RAD REPORT ---
EXAM DESCRIPTION: MRI - Brain Wo Cont - 10/09/2021 1:37 pm CLINICAL HISTORY: double vision, dizziness, headache, history of prior CVA COMPARISON: Ct Stroke Brain Wo Cont dated 10/09/2021 TECHNIQUE: Sagittal T1-weighted images were obtained along with axial PD, heavily T2-weighted and T2 -FLAIR images. Axial DWI and ADC mapping sequences were also obtained along with coronal heavily T2-w eighted images. FINDINGS: No intracranial hemorrhage, mass or acute infarction. There is no edema or shift of midlin e structures. Ventricles are normal. No extra-axial fluid collections. Griggs-matter/white matter junct ion is preserved. Signal voids are seen as a normal finding in the major intracranial vessels. Verteb robasilar tortuosity noted without acute vascular finding. No sella or supra sella abnormality seen. Optic chiasm is unremarkable. No globe or orbital content a bnormality identifiable. Mastoid air cells and paranasal sinuses are clear. IMPRESSION: Negative non-contrast MRI of the Brain for CVA or other acute intracranial process.
--- NOTE | 2021-10-09 14:35 | ER ---
Nurse's Notes [facility] Name: Luis Enrique Francois Age: 55 yrs Sex: Male : 1965 Arrival Date: 10/09/2021 Time: 10:00 Bed 16 Private MD: Diagnosis: Diplopia Presentation: 10/09 10:14 Chief complaint: EMS states: PT when climbing into the van at work stated that he jh6 started having dizziness and double vision. Pt stated that he had same s.s 3 wks ago and was told it was vertigo. 10:14 Coronavirus screen: Vaccine status: Patient reports receiving the 2nd dose of the covid jh6 vaccine. Ebola Screen: Patient negative for fever greater than or equal to 101.5 degrees Fahrenheit, and additional compatible Ebola Virus Disease symptoms Patient denies exposure to infectious person. Patient denies travel to an Ebola-affected area in the 21 days before illness onset. Initial Sepsis Screen: Does the patient meet any 2 criteria? No. Patient's initial sepsis screen is negative. Does the patient have a suspected source of infection? No. Patient's initial sepsis screen is negative. Risk Assessment: Do you want to hurt yourself or someone else? Patient reports no desire to harm self or others. Onset of symptoms was October 09, 2021. 10:14 Method Of Arrival: [facility] 10:14 Acuity: KEERTHI 3 6 Triage Assessment: 10:15 General: Appears in no apparent distress. obese, well groomed, well developed, well jh6 nourished, Behavior is calm, cooperative. 10:15 Pain: Denies pain. Neuro: Level of Consciousness is awake, alert, obeys commands, jh6 Oriented to person, place, time, situation, Cognos Architect are equal bilaterally Moves all extremities. Speech is normal, Pupils are PERRLA, Pupil Size: 3mm Reports dizziness, since thsi am 0830. Historical: - Allergies: 10:33 Dilaudid; jh6 - PMHx: 10:33 diabetes mellitus; Hypercholesterolemia; Hypertensive disorder; jh6 - Immunization history:: Adult Immunizations up to date. - Social history:: Smoking status: Patient denies any tobacco usage or history of. Screenin:35 Abuse screen: Denies threats or abuse. Denies injuries from another. Nutritional jh6 screening: No deficits noted. Tuberculosis screening: No symptoms or risk factors identified. Fall Risk None identified. IV access (20 points). Assessment: 10:35 General: see triage note. . jh6 11:30 Reassessment: No changes from previously documented assessment. Patient is alert, jh6 oriented x 3, equal unlabored respirations, skin warm/dry/pink. waiting for results. call light in reach. 11:30 Pain: Denies pain. jh6 13:45 Reassessment: Patient and/or family updated on plan of care and expected duration. Pain jh6 level reassessed. Patient is alert, oriented x 3, equal unlabored respirations, skin warm/dry/pink. reports no double vision and dizziness only when traveling in wheelchair \T\ corners. Vital Signs: 10:14 BP 105 / 77; Pulse 80; Resp 16; Temp 97.7; Pulse Ox 100% ; Weight 117.93 kg; Height 5 jh6 ft. 11 in. (180.34 cm); Pain 0/10; 11:30 BP 120 / 76; Pulse 82; Resp 16; Pulse Ox 100% ; Pain 0/10; jh6 13:47 BP 110 / 76; Pulse 80; Resp 16; Pulse Ox 97% ; Pain 0/10; jh6 14:50 BP 112 / 74; Pulse 79; Resp 16; Pulse Ox 100% ; Pain 0/10; jh6 10:14 Body Mass Index 36.26 (117.93 kg, 180.34 cm) 6 ED Course: 10:00 Patient arrived in ED. ms3 10:01 Swetha Hidalgo, RN is Primary Nurse. jh6 10:01 Jose Coleman DO is Attending Physician. ms3 10:14 Patient has correct armband on for positive identification. Bed in low position. Call [facility] light in reach. Side rails up X2. Pillow given. manager monitoring on. Pulse ox on. NIBP on. 10:14 EKG done, by ED staff, reviewed by Jose Coleman DO. 5 10:20 CT Stroke Brain w/o Contrast In Process Unspecified. EDMS 10:[address] via stretcher. 6 10:20 EKG completed in triage. Results shown to . 6 10:20 Inserted saline lock: 20 gauge in right forearm, using aseptic technique. Blood jh6 collected. 10:33 Triage completed. jh6 10:48 Stroke CXR 1 View Sent. jh6 10:50 Stroke CXR 1 View In Process Unspecified. EDMS 11:26 Stroke CXR 1 View In Process Unspecified. EDMS 12:13 Chest Single View In Process Unspecified. EDMS 13:12 Patient moved to MRI. jh6 13:25 MRI - Brain Wo Cont In Process Unspecified. EDMS 13:43 Patient moved back from radiology. jh6 14:34 Rafat Dos Santos MD is Referral Physician. ms3 14:50 IV discontinued, intact, bleeding controlled, No redness/swelling at site. Pressure jh6 dressing applied. Administered Medications: 11:46 Drug: Meclizine 50 mg Route: PO; jh6 13:00 Follow up: Response: Marked relief of symptoms jh6 Outcome: 14:35 Discharge ordered by . ms3 15:01 Discharged to home ambulatory. jh6 15:01 Condition: good 15:01 Discharge instructions given to patient. 15:04 Patient left the ED. jh6 Signatures: Dispatcher [employer] Kristy Milner 5 Jose Coleman, DO ms3 Swetha Hidalgo, RN RN jh6
--- NOTE | 2021-10-09 14:35 | EDPHYS ---
Physician Documentation [facility] Name: Luis Enrique Francois Age: 55 yrs Sex: Male : 1965 Arrival Date: 10/09/2021 Time: 10:00 Bed 16 Private MD: ED Physician Jose Coleman HPI: 10/09 10:21 This 55 yrs old Male presents to ER via Unassigned with complaints of double vision. ms3 10:21 The patient is experiencing blurred vision, double vision. Onset: The symptoms/episode ms3 began/occurred 1 hour(s) ago. Duration: the symptoms are continuous. Aggravated by nothing. Alleviated by closing eyes. Associated signs and symptoms: Pertinent positives: dizziness, Pertinent negatives: headache. Severity of symptoms: At their worst the symptoms were severe in the emergency department the symptoms have improved moderately, Pain is currently a 0 / 10. Historical: - Allergies: 10:33 Dilaudid; jh6 - PMHx: 10:33 diabetes mellitus; Hypercholesterolemia; Hypertensive disorder; 6 - Immunization history:: Adult Immunizations up to date. - Social history:: Smoking status: Patient denies any tobacco usage or history of. ROS: 10:21 Constitutional: Negative for fever, and chills. Neck: Negative for injury, pain, and ms3 swelling, Cardiovascular: Negative for chest pain, and palpitations. Respiratory: Negative for shortness of breath, cough, wheezing, and pleuritic chest pain, Abdomen/GI: Negative for abdominal pain, nausea, vomiting, diarrhea, and constipation, Skin: Negative for injury, rash, and discoloration. 10:21 Eyes: Positive for blurry vision. 10:21 All other systems are negative. Exam: 10:05 ECG was reviewed by the Attending Physician. ms3 10:21 Constitutional: This is a well developed, well nourished patient who is awake, alert, ms3 and in no acute distress. ENT: Nares patent. No nasal discharge, no septal abnormalities noted. Tympanic membranes are normal and external auditory canals are clear. Oropharynx with no redness, swelling, or masses, exudates, or evidence of obstruction, uvula midline. Mucous membranes moist. Neck: Trachea midline, no cervical lymphadenopathy. Supple, full range of motion without nuchal rigidity, or vertebral point tenderness. No Meningismus. Chest/axilla: Normal chest wall appearance and motion. Nontender with no deformity. Cardiovascular: Regular rate and rhythm with a normal S1 and S2. No gallops, murmurs, or rubs. Normal PMI, no JVD. No pulse deficits. Respiratory: Lungs have equal breath sounds bilaterally, clear to auscultation and percussion. No rales, rhonchi or wheezes noted. No increased work of breathing, no retractions or nasal flaring. Abdomen/GI: Soft, non-tender, with normal bowel sounds. No distension or tympany. No guarding or rebound. No evidence of tenderness throughout. Skin: Warm, dry with normal turgor. Normal color with no rashes, no lesions, and no evidence of cellulitis. MS/ Extremity: Pulses equal, no cyanosis. Neurovascular intact. Full, normal range of motion. Psych: Awake, alert, with orientation to person, place and time. Behavior, mood, and affect are within normal limits. 10:21 Eyes: Periorbital structures: appear normal, Pupils: equal, round, and reactive to light and accomodation, Extraocular movements: intact throughout. Vital Signs: 10:14 BP 105 / 77; Pulse 80; Resp 16; Temp 97.7; Pulse Ox 100% ; Weight 117.93 kg; Height 5 jh6 ft. 11 in. (180.34 cm); Pain 0/10; 11:30 BP 120 / 76; Pulse 82; Resp 16; Pulse Ox 100% ; Pain 0/10; jh6 13:47 BP 110 / 76; Pulse 80; Resp 16; Pulse Ox 97% ; Pain 0/10; jh6 14:50 BP 112 / 74; Pulse 79; Resp 16; Pulse Ox 100% ; Pain 0/10; jh6 10:14 Body Mass Index 36.26 (117.93 kg, 180.34 cm) [facility] MDM: 10:01 Patient medically screened. ms3 14:35 Differential diagnosis: Tumor vs Pituitary hemorrhage vs Diplopia. ms3 14:40 Data reviewed: vital signs, nurses notes, lab test result(s), radiologic studies, CT ms3 scan, MRI. 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 Interpretation: normal. Counseling: I had a detailed discussion with the patient and/or guardian regarding: the historical points, exam findings, and any diagnostic results supporting the discharge/admit diagnosis, lab results, radiology results, the need for outpatient follow up, to return to the emergency department if symptoms worsen or persist or if there are any questions or concerns that arise at home. Physician consultation: Rafat Dos Santos MD was called at 14:20, was contacted at 14:20, regarding consult, patient's condition, and will see patient in office, Discussed visual tests to discuss with patient. ED course: Discussed MRI, CT, physical exam findings with patient. Patient to follow-up with Dr. Dos Santos in 1-2 days. Patient understands and agrees with plan. All questions were answered. Return precautions discussed include worsening symptoms, or any other concerns. On reevaluation patient symptoms improved, patient is alert and oriented x4, no apparent distress, nontoxic.. 10/09 10:01 Order name: Basic Metabolic Panel; Complete Time: 10:47 ms3 10/09 10:01 Order name: CBC with Diff; Complete Time: 10:47 ms3 10/09 10:01 Order name: Protime (+inr); Complete Time: 10:47 ms3 10/09 10:01 Order name: Ptt, Activated; Complete Time: 10:47 ms3 10/09 10:01 Order name: CT Stroke Brain w/o Contrast; Complete Time: 11:06 ms3 10/09 10:01 Order name: Stroke CXR 1 View; Complete Time: 13:00 ms3 10/09 10:01 Order name: EKG; Complete Time: 10:01 ms3 10/09 10:01 Order name: Cardiac monitoring; Complete Time: 10:15 ms3 10/09 10:01 Order name: EKG - Nurse/Tech; Complete Time: 10:15 ms3 10/09 10:01 Order name: IV Saline Lock; Complete Time: 10:48 ms3 10/09 11:15 Order name: MRI - Brain Wo Cont; Complete Time: 13:52 ms3 10/09 11:33 Order name: Chest Single View; Complete Time: 13:00 EDMS 10/09 10:01 Order name: Labs collected and sent; Complete Time: 10:48 ms3 10/09 10:01 Order name: NPO; Complete Time: 10:48 ms3 10/09 10:01 Order name: O2 Per Protocol; Complete Time: 10:15 ms3 10/09 10:01 Order name: O2 Sat Monitoring; Complete Time: 10:15 ms3 10/09 10:01 Order name: Stroke Swallow Screen; Complete Time: 10:48 ms3 EC:05 Rate is 82 beats/min. Rhythm is regular. QRS interval is normal. Clinical impression: ms3 NSR with LAFB. Interpreted by me. Administered Medications: 11:46 Drug: Meclizine 50 mg Route: PO; [facility] 13:00 Follow up: Response: Marked relief of symptoms jh6 Disposition Summary: 10/09/21 14:35 Discharge Ordered Location: Home ms3 Condition: Stable ms3 Diagnosis - Diplopia ms3 Followup: ms3 - With: Rafat Dos Santos MD - When: 1 - 2 days - Reason: Recheck today's complaints Discharge Instructions: - Discharge Summary Sheet ms3 - Diplopia ms3 - Visual Disturbances ms3 Forms: - Medication Reconciliation Form ms3 - Thank You Letter ms3 - Work release form mh5 - Antibiotic Education ms3 - Prescription Opioid Use ms3 Signatures: Dispatcher [employer] EDJose Stern DO DO ms3 Swetha Hidalgo, RN RN jh6
[2021-10-09 15:21] VITALS: TEMP 97.7
[2021-10-09 15:25] VITALS: BP 112/74; O2SAT 100
--- NOTE | 2021-10-10 09:12 | EKG ---
Test Date: 2021-10-09 Test Time: 10:05:25 Communications Systems Engineer: CHELY MEASUREMENT RESULTS: Intervals: Rate: 82 SD: 138 QRSD: 90 QT: 386 QTc: 450 [place]: P: 59 SD: 138 QRS: -51 T: 39 INTERPRETIVE STATEMENTS: Normal sinus rhythm Left anterior fascicular block Abnormal ECG Compared to ECG 09/06/2021 12:27:12 Left anterior fascicular block now present Left-axis deviation no longer present Myocardial infarct finding no longer present Electronically Signed On 10-10-21 09:08:26 CDT by Mark Crandall
== END 2021-10-09 15:04 | disposition home or self-care (01) ==
LOC: ER 09:59
DX: H53.2 Diplopia (principal); E11.9 Type 2 diabetes mellitus without complications; I10 Essential (primary) hypertension; Z88.6 Allergy status to analgesic agent
CPT/HCPCS: 93005; 85025; 80048; 36415; 85610; 85730; 70450; 71045 ×2; 70551; 99285; J8597